=== PATIENT | female | born 1970 | race Caucasian/White ===

== ENCOUNTER 2017-02-24 08:18 | Emergency (ER) | payer SELFPAY ==
[2017-02-24] MEDS ORDERED: ONDANSETRON 4 MG/2 ML VIAL IVPUSH ONE (08:44)
[2017-02-24] MEDS ORDERED: SODIUM CHLORIDE 1,000 ML IV STA (08:44)
[2017-02-24 08:51] LABS: URINE APPEARANCE CLEAR; URINE BILIRUBIN NEGATIVE (NEGATIVE); URINE BLOOD 3+ (NEGATIVE); URINE COLOR YELLOW; URINE GLUCOSE (UA) NEGATIVE (NEGATIVE); URINE KETONE TRACE (NEGATIVE); URINE LEUK ESTERASE NEGATIVE (NEGATIVE); URINE NITRITE NEGATIVE (NEGATIVE); URINE UROBILINOGEN NEGATIVE mg/dL (0.2-1.0)
[2017-02-24 08:56] LABS: URINE PROTEIN 1+ (NEGATIVE)
[2017-02-24 08:58] LABS: URINE MUCUS RARE; URINE RBC 35 /hpf (0-3); URINE WBC 4 /hpf (3-5)
[2017-02-24 09:05] VITALS: BMI 24.4
[2017-02-24] MEDS ORDERED: ONDANSETRON 4 MG/2 ML VIAL ONE (09:13)
--- NOTE | 2017-02-24 09:16 | PDOC ---
History of Present Illness - General Chief Complaint: Pain, Acute Stated Complaint: PAIN Time Seen by Provider: 02/24/17 08:28 History Source: Patient Exam Limitations: No Limitations - History of Present Illness Initial Comments: 02/24/17 09:10 CHIEF COMPLAINT: Abdominal pain HISTORY OF PRESENT ILLNESS: This is an otherwise healthy 46 year old female who presents ambulatory to the ED complaining of lower abdominal pain, nausea/ vomiting, and diarrhea. The pain began yesterday; it was initially intermittent but is now constant. She denies fevers/chills. She is currently menstruating, but does not usually have pain with menstruation. She denies recent travel, sick contacts, and eating in restaurants. Surgical history: None REVIEW OF SYSTEMS: GENERAL/CONSTITUTIONAL: No fever or chills. No weakness. No weight change. HEAD, EYES, EARS, NOSE AND THROAT: No change in vision. No ear pain or discharge. No sore throat. CARDIOVASCULAR: No chest pain or palpitations. RESPIRATORY: No cough, wheezing, or shortness of breath. GASTROINTESTINAL: See HPI. GENITOURINARY: No dysuria, frequency, or change in urination. MUSCULOSKELETAL: No joint or muscle swelling or pain. No neck or back pain. SKIN: No rash or easy bruising. NEUROLOGIC: No headache, vertigo, loss of consciousness, or loss of sensation. PSYCHIATRIC: No depression or anxiety. ENDOCRINE: No increased thirst. No abnormal weight change. HEMATOLOGIC/LYMPHATIC: No anemia, easy bleeding, or history of blood clots. ALLERGIC/IMMUNOLOGIC: No hives or skin allergy. No latex allergy. PHYSICAL EXAM: GENERAL: The patient is awake, alert, and fully oriented, in no acute distress. ENT: Pupils equal, round and reactive to light, extraocular movements intact, sclera anicteric, conjunctiva clear. Neck supple. LUNGS: Clear to auscultation bilaterally. Normal excursion. No respiratory distress or use of accessory muscles. CV: RRR, S1/S2, no MRG. Cap refill < 2 sec. ABDOMEN: Soft, non-distended, non-tender even to deep palpation. EXTREMITIES: Normal range of motion, no edema. NEUROLOGICAL: Normal speech, normal gait. CN II-XII grossly intact. PSYCH: Normal mood, normal affect. SKIN: Warm, dry, normal turgor, no rashes or lesions noted. DISPATCHER RELAY: Normal external exam. Menstrual blood, no other discharge. No CMT or adnexal tenderness. Past History - Past Medical History Allergies/Adverse Reactions: Allergies Allergy/AdvReac Type Severity Reaction Status Date / Time No Known Allergies Allergy Verified 02/24/17 08:35 Other medical history: DENIES MEDICAL HX - Psycho/Social/Smoking Cessation Hx Suicidal Ideation: No Smoking History: Never smoked Hx Alcohol Use: No Drug/Substance Use Hx: No *Physical Exam - Vital Signs Last Vital Signs Temp Pulse Resp BP Pulse Ox 97.9 F 55 L 16 125/68 100 02/24/17 08:35 02/24/17 08:35 02/24/17 08:35 02/24/17 08:35 02/24/17 08:35 Heart Score/ECG Review - ECG Intrepretation Comment:: 02/24/17 09:59 NSR at 65 bpm, no ST or T wave changes ED Treatment Course - LABORATORY CBC & Chemistry Diagram: 02/24/17 09:20 02/24/17 09:20 - ADDITIONAL ORDERS Additional order review: Laboratory Results 02/24/17 08:40 Urine Color Yellow Urine Appearance Clear Urine pH 8.0 Urine Protein 1+ H Urine Glucose (UA) Negative Urine Ketones Trace H Urine Blood 3+ H Urine Nitrite Negative Urine Bilirubin Negative Urine Urobilinogen Negative Ur Leukocyte Esterase Negative Urine RBC 35 Urine WBC 4 Ur Epithelial Cells Rare Urine Mucus Rare Urine HCG, Qual Negative Medical Decision Making - Medical Decision Making 02/24/17 09:16 A/P: 46 year old female with lower abdominal pain and n/v/d. No abdominal tenderness even to deep palpation. 1. EKG 2. Labs including CBC, comp, lipase, UA, urine 3. Zofran 4mg IVP for nausea 4. IVF 5. Re-assess, po trial 02/24/17 09:59 -WBC 13.6 with 88.6% neutrophils -UA with 3+ blood (menstruating) Patient re-examined; she is feeling better. Repeat abdominal exam is soft and non-tender. Tolerating PO. Informed her that her WBC is elevated. Counseled her to return for CTAP if pain is worsening and she agrees. *DC/Admit/Observation/Transfer Diagnosis at time of Disposition: Vomiting and diarrhea Abdominal pain Qualifiers: Abdominal location: generalized Qualified Code(s): R10.84 - Generalized abdominal pain - Discharge Dispostion Admit: No - Referrals Referrals: Loren Pratt MD [Staff Physician] - Call tomorrow (Primary care) - Patient Instructions Printed Discharge Instructions: DI for Viral Gastroenteritis -- Adult, Gastroenteritis Diet Additional Instructions: Regrese para mas estudios si samson dolor esta peorando o si no puede beber sin vomitar Print Language: ANDORRAN
[2017-02-24 09:38] LABS: BASOPHIL 0.2 % (0-2.0); EOSINOPHIL 0.2 % (0-4.5); MCH 28.9 pg (25.7-33.7); MCHC 33.1 g/dl (32.0-36.0); MEAN CELL VOLUME 87.2 fl (80-96); MEAN PLT VOLUME 8.6 fl (7.5-11.1); NEUTROPHILS 88.4 % (42.8-82.8); PLATELET COUNT 259 K/MM3 (134-434); RDW 15.1 % (11.6-15.6); WHITE BLOOD COUNT 13.6 K/mm3 (4.0-10.0)
--- NOTE | 2017-02-24 09:57 | EKG ---
Test Reason : Blood Pressure : / mmHG Vent. Rate : 065 BPM Atrial Rate : 065 BPM P-R Int : 158 ms QRS Dur : 088 ms QT Int : 452 ms P-R-T Axes : 071 035 056 degrees QTc Int : 470 ms NORMAL SINUS RHYTHM NORMAL ECG NO PREVIOUS ECGS AVAILABLE Confirmed by CSASI JAFFE MD ([id number]) on 02/24/2017 9:57:45 AM Referred By: Confirmed By:CASSI JAFFE MD
[2017-02-24 09:59] LABS: ALBUMIN 3.6 g/dl (3.4-5.0); ANION GAP 6 (8-16); BILIRUBIN,TOTAL 0.5 mg/dL (0.2-1.0); CALCIUM 8.4 mg/dL (8.5-10.1); CO2 26 mmol/L (21-32); CREATININE 0.6 mg/dL (0.55-1.02); GLUCOSE,RANDOM 90 mg/dL (74-106); SGOT/AST 14 U/L (15-37); SGPT/ALT 19 U/L (12-78)
[2017-02-24 10:00] LABS: ALK PHOS 61 U/L (45-117)
[2017-02-24 10:44] VITALS: BP 122/70; PULSE 58; TEMP 98.1
== END 2017-02-24 10:44 | disposition home or self-care (01) ==
LOC: JER 08:18
PROC: 3E033GC Introduction of Other Therapeutic Substance into Peripheral Vein, Percutaneous Approach (ICD-10-PCS; principal; 2017-02-24)
DX: K52.9 Noninfective gastroenteritis and colitis, unspecified (principal)
CPT/HCPCS: 36415; 80053; 81003; 81015; 83690; 84703; 85025; 93005; 93010; 99282-25